=== PATIENT | female | born 1995 | race Two or more races ===

== ENCOUNTER 2019-01-18 14:08 | Emergency (ER) | payer OTHER ==
[~2019-01-18] VITALS: Ht 157.5 cm; Wt 46.0 kg
[2019-01-18] MEDS ORDERED: SODIUM CHLORIDE 0.9% 1,000 ML IV ONE (15:02)
[2019-01-18] MEDS ORDERED: methylPREDNISolone SOD SUCC 125 MG/2 ML VL IV ONE (15:15)
[2019-01-18 15:47] LABS: Basophils # (auto) 0 uL; Basophils % (auto) 0.6 % (0.0-2.0); Eosinophils # (auto) 0 uL; Eosinophils % (auto) 0.5 % (0.0-7.0); Hematocrit 44.9 % (36.0-46.0); Hemoglobin 15.6 g/dL (12.2-16.2); Lymphocytes # (auto) 1.7 uL; Lymphocytes % (auto) 31.4 % (10.0-50.0); Mean Corpuscular Hgb Conc. 34.6 g/dL (32.0-36.0); Mean Corpuscular Volume 92.3 fL (80.0-100.0); Monocytes # (auto) 0.4 uL; Monocytes % (auto) 7.5 % (0.0-12.0); Neutrophils # (auto) 3.3 uL; Nucleated Red Blood Cells % 0.1 %; Platelet Count (auto) 213 10^3/uL (140-450); Red Blood Cells 4.87 10^6/uL (4.0-5.20); White Blood Cell 5.4 10^3/uL (4.4-10.8)
[2019-01-18 16:11] LABS: Albumin 4.5 g/dL (3.4-5.0); BUN/Creatinine Ratio 15.9; Calcium 9.7 mg/dL (8.5-10.1); Potassium 4.1 mmol/L (3.5-5.1)
[2019-01-18 16:21] LABS: Bilirubin, Total 0.9 mg/dL (0.2-1.0); Total Protein 8.4 g/dL (6.4-8.2)
[2019-01-18 18:28] VITALS: BP 106/60
[2019-01-18 18:51] LABS: Urine Bacteria NONE SEEN /hpf (None Seen); Urine Blood 2+ /uL (Negative); Urine Mucus FEW (None Seen); Urine Specific Gravity 1.024 (1.001-1.035); Urine WBC 1 /hpf (0 - 5)
[2019-01-18] MEDS ORDERED: KETOROLAC TROMETH 15 mg/ml 1ML VL IV ONE (19:30)
== END 2019-01-18 20:07 | disposition home or self-care (01) ==
LOC: ER 14:12
DX: M25.50 Pain in unspecified joint (principal); R53.1 Weakness; R11.2 Nausea with vomiting, unspecified; R19.7 Diarrhea, unspecified
CPT/HCPCS: 36415; 80053; 81001; 81025; 84443; 85025; 94761; 96361; 96374; 96375; 99283; J1885; J2930; J7030

== ENCOUNTER 2019-07-21 00:52 | Emergency (ER) | payer OTHER ==
[~2019-07-21] VITALS: Ht 157.5 cm; Wt 45.4 kg
[2019-07-21 01:21] VITALS: BP 95/58
[2019-07-21 01:39] LABS: Urine Bacteria FEW /hpf (None Seen); Urine Blood Negative /uL (Negative); Urine Mucus FEW (None Seen); Urine Specific Gravity 1.024 (1.001-1.035); Urine WBC 8 /hpf (0 - 5)
[2019-07-21 02:21] LABS: Basophils # (auto) 0 uL; Basophils % (auto) 0.6 % (0.0-2.0); Eosinophils # (auto) 0 uL; Eosinophils % (auto) 0.3 % (0.0-7.0); Hematocrit 38.9 % (36.0-46.0); Hemoglobin 13.4 g/dL (12.2-16.2); Lymphocytes # (auto) 1.4 uL; Lymphocytes % (auto) 17.7 % (10.0-50.0); Mean Corpuscular Hemoglobin 31.5 pg (28.0-32.0); Mean Corpuscular Hgb Conc. 34.5 g/dL (32.0-36.0); Mean Corpuscular Volume 91.5 fL (80.0-100.0); Monocytes # (auto) 0.5 uL; Monocytes % (auto) 6.1 % (0.0-12.0); Neutrophils % (auto) 75.3 % (37.0-80.0); Platelet Count (auto) 191 10^3/uL (140-450); Red Blood Cells 4.25 10^6/uL (4.0-5.20); Red Cell Distribution Width 13.1 % (11.8-14.3); White Blood Cell 7.9 10^3/uL (4.4-10.8)
[2019-07-21 02:36] LABS: Albumin 3.8 g/dL (3.4-5.0); BUN/Creatinine Ratio 25.4; Calcium 8.5 mg/dL (8.5-10.1); Potassium 3.9 mmol/L (3.5-5.1)
[2019-07-21 02:38] LABS: Bilirubin, Total 0.8 mg/dL (0.2-1.0); Total Protein 7.5 g/dL (6.4-8.2)
== END 2019-07-21 04:55 | disposition left against medical advice (07) ==
LOC: ER 00:52
DX: R10.9 Unspecified abdominal pain (principal); Z53.21 Procedure and treatment not carried out due to patient leaving prior to being seen by health care provider
CPT/HCPCS: 36415; 74176; 80053; 81001; 83690; 85025

== ENCOUNTER 2020-12-29 19:12 | Emergency (ER) | payer OTHER ==
[~2020-12-29] VITALS: Ht 167.6 cm; Wt 2.4 kg
[2020-12-29] MEDS ORDERED: KETOROLAC TROMETH 30 MG/ML 1ML VIAL IV ONE (22:30)
[2020-12-29 23:49] LABS: Basophils # (auto) 0 10 ^3/uL (0-0.2); Basophils % (auto) 0.4 % (0.0-2.0); Eosinophils # (auto) 0 10 ^3/uL (0-0.8); Eosinophils % (auto) 0.2 % (0.0-7.0); Hematocrit 37.2 % (36.0-46.0); Hemoglobin 12.9 g/dL (12.2-16.2); Lymphocytes # (auto) 1.4 10 ^3/uL (0.4-5.4); Lymphocytes % (auto) 15.5 % (10.0-50.0); Mean Corpuscular Hgb Conc. 34.7 g/dL (32.0-36.0); Mean Corpuscular Volume 86.4 fL (80.0-100.0); Monocytes # (auto) 0.5 10 ^3/uL (0-1.3); Monocytes % (auto) 5.8 % (0.0-12.0); Neutrophils % (auto) 78.1 % (37.0-80.0); Red Blood Cells 4.31 10^6/uL (4.0-5.20); Red Cell Distribution Width 14.5 % (11.8-14.3)
[2020-12-30 00:14] LABS: Albumin 3.8 g/dL (3.4-5.0); Calcium 9.1 mg/dL (8.5-10.1); Magnesium 1.8 mg/dL (1.6-2.6); Potassium 3.3 mmol/L (3.5-5.1)
[2020-12-30 00:20] LABS: BUN/Creatinine Ratio 23.4; Bilirubin, Total 0.9 mg/dL (0.2-1.0); Total Protein 7.4 g/dL (6.4-8.2)
[2020-12-30] MEDS ORDERED: fentaNYL CITRATE 100 MCG/2 ML VL IV ONE ×2 (02:15→06:30)
[2020-12-30] MEDS ORDERED: fentaNYL CITRATE 5 ML ONE (06:47)
[2020-12-30] MEDS ORDERED: MORPHINE SULFATE 4 MG/ML SYR/VIAL IV ONE (11:30)
[2020-12-30] MEDS ORDERED: ONDANSETRON HCL 4 MG/2 ML VIAL IV ONE (11:30)
[2020-12-30] MEDS ORDERED: SODIUM CHLORIDE 0.9% 1,000 ML IV ONE (11:30)
[2020-12-30 12:23] VITALS: BP 105/66
== END 2020-12-30 12:39 | disposition home or self-care (01) ==
LOC: EDBD 19:12 → ER 19:12
DX: N83.201 Unspecified ovarian cyst, right side (principal); N83.202 Unspecified ovarian cyst, left side; R11.2 Nausea with vomiting, unspecified; Z20.822 Contact with and (suspected) exposure to COVID-19
CPT/HCPCS: 36415; 74176; 76830; 76856; 80053; 82150; 83690; 83735; 85025; 87426; 96361; 96374; 96375; 96376; 99285; J1885; J2270; J2405; J3010; J7030

== ENCOUNTER 2021-08-10 03:23 | Emergency (ER) | payer MEDICAID, OTHER ==
[~2021-08-10] VITALS: Ht 167.6 cm; Wt 54.9 kg
[2021-08-10 04:23] LABS: Basophils # (auto) 0 10 ^3/uL (0-0.2); Basophils % (auto) 0.5 % (0.0-2.0); Eosinophils # (auto) 0 10 ^3/uL (0-0.8); Eosinophils % (auto) 0.3 % (0.0-7.0); Hematocrit 37.8 % (36.0-46.0); Hemoglobin 12.9 g/dL (12.2-16.2); Lymphocytes # (auto) 2.5 10 ^3/uL (0.4-5.4); Lymphocytes % (auto) 30.1 % (10.0-50.0); Mean Corpuscular Hemoglobin 29.9 pg (28.0-32.0); Mean Corpuscular Hgb Conc. 34.1 g/dL (32.0-36.0); Mean Corpuscular Volume 87.6 fL (80.0-100.0); Monocytes # (auto) 0.5 10 ^3/uL (0-1.3); Monocytes % (auto) 5.4 % (0.0-12.0); Neutrophils # (auto) 5.4 10 ^3/uL (1.6-8.6); Neutrophils % (auto) 63.7 % (37.0-80.0); Nucleated Red Blood Cells % 0.1 %; Red Blood Cells 4.32 10^6/uL (4.0-5.20); White Blood Cell 8.4 10^3/uL (4.4-10.8)
[2021-08-10 04:44] LABS: Calcium 8.8 mg/dL (8.5-10.1); Potassium 3.2 mmol/L (3.5-5.1)
[2021-08-10 04:47] LABS: Albumin 3.7 g/dL (3.4-5.0); BUN/Creatinine Ratio 23.9
[2021-08-10 04:50] LABS: Bilirubin, Total 0.4 mg/dL (0.2-1.0); Total Protein 7.4 g/dL (6.4-8.2)
[2021-08-10] MEDS ORDERED: POTASSIUM EFFERVESENT TAB 25 MEQ PO ONE (07:30)
[2021-08-10] MEDS ORDERED: MORPHINE SULFATE 4 MG/ML SYR/VIAL IV ONE (07:45)
[2021-08-10] MEDS ORDERED: ONDANSETRON HCL 4 MG/2 ML VIAL IV ONE (07:45)
[2021-08-10 08:57] VITALS: BP 91/55
[2021-08-10] MEDS ORDERED: CEPH-509 PO (09:09)
[2021-08-10] MEDS ORDERED: ACET-1156 PO (09:10)
[2021-08-10] MEDS ORDERED: HYDROcodone-ACET 10/325MG TAB PO ONE (09:30)
[2021-08-10 09:58] LABS: Urine Amorphous Crystal FEW /hpf (None Seen); Urine Bacteria NONE SEEN /hpf (None Seen); Urine Blood Negative /uL (Negative); Urine Mucus FEW (None Seen); Urine Specific Gravity 1.013 (1.001-1.035); Urine WBC 7 /hpf (0 - 5)
== END 2021-08-10 10:17 | disposition home or self-care (01) ==
LOC: ER 03:23 → EDBD 03:23 → EDUNIT# 03:23 → ER 10:17
DX: N83.201 Unspecified ovarian cyst, right side (principal); E87.6 Hypokalemia; Z20.822 Contact with and (suspected) exposure to COVID-19
CPT/HCPCS: 36415; 71045; 74176; 76830; 76856; 80053; 81001; 83690; 85025; 87426; 96374; 96375; 99285; J2270; J2405

== ENCOUNTER 2023-04-04 02:36 | Inpatient (IN) | payer MEDICAID ==
[~2023-04-04] VITALS: Ht 157.5 cm; Wt 55.0 kg
[~2023-04-04 02:36] MED LIST: ACET-1881 PO; CEPH-509 PO
[2023-04-04 04:30] LABS: Basophils # (auto) 0 10 ^3/uL (0-0.2); Basophils % (auto) 0.4 % (0.0-2.0); Eosinophils # (auto) 0.1 10 ^3/uL (0-0.8); Eosinophils % (auto) 0.6 % (0.0-7.0); Hematocrit 37.2 % (36.0-46.0); Hemoglobin 12.5 g/dL (12.2-16.2); Lymphocytes # (auto) 2.1 10 ^3/uL (0.4-5.4); Lymphocytes % (auto) 22.1 % (10.0-50.0); Mean Corpuscular Hemoglobin 29.4 pg (28.0-32.0); Mean Corpuscular Hgb Conc. 33.7 g/dL (32.0-36.0); Mean Corpuscular Volume 87.2 fL (80.0-100.0); Monocytes # (auto) 0.6 10 ^3/uL (0-1.3); Monocytes % (auto) 6.5 % (0.0-12.0); Neutrophils # (auto) 6.8 10 ^3/uL (1.6-8.6); Neutrophils % (auto) 70.4 % (37.0-80.0); Nucleated Red Blood Cells % 0.1 %; Red Blood Cells 4.27 10^6/uL (4.0-5.20); Red Cell Distribution Width 15.1 % (11.8-14.3); White Blood Cell 9.6 10^3/uL (4.4-10.8)
[2023-04-04 04:43] LABS: Albumin 4.3 g/dL (3.2-4.8); Alkaline Phosphatase 79 U/L (46-116); Anion Gap 5 (5-15); Aspartate Aminotransferase 8 U/L (13-40); BUN/Creatinine Ratio 9.4 (10.0-20.0); Blood Urea Nitrogen 6 mg/dL (9-23); Calcium 9.1 mg/dL (8.7-10.4); Carbon Dioxide 27 mmol/L (20-30); Chloride 107 mmol/L (98-107); Glucose 99 mg/dL (74-106); Lipase 56 U/L (12-53); Potassium 3.8 mmol/L (3.5-5.1); Sodium 139 mmol/L (136-145)
[2023-04-04 04:43] LABS: Urine Bacteria FEW /hpf (None Seen); Urine Blood Negative /uL (Negative); Urine Clarity Clear (Clear); Urine Color Yellow (Yellow); Urine Mucus FEW (None Seen); Urine Protein, UAD Negative (Negative); Urine Specific Gravity 1.022 (1.001-1.035); Urine Urobilinogen Normal (Negative); Urine WBC <1 /hpf (0 - 5)
[2023-04-04 04:44] LABS: Bilirubin, Total 0.4 mg/dL (0.2-1.0); Total Protein 7.1 g/dL (5.7-8.2)
[2023-04-04 04:50] LABS: Alanine Aminotransferase < 9 U/L (7-40)
[2023-04-04] MEDS ORDERED: HYDROcodone-ACET 10/325MG TAB PO ONE (08:15)
[2023-04-04 11:34] VITALS: PULSE 70; RESP 16; O2SAT 98
[2023-04-04] MEDS ORDERED: HYDROmorphone HCL 2 MG/ML VL/or syr IV ONE (12:15)
[2023-04-04] MEDS ORDERED: PIPERACILLIN-TAZOB 3.375GM 100 ML IV ONE (13:30)
[2023-04-04] MEDS: ONDANSETRON HCL 4 MG/2 ML VIAL IV PRN ×2 (13:46→21:52)
[2023-04-04] MEDS: SODIUM CHLORIDE 0.9% 1,000 ML IV SCH ×2 (13:47→21:50)
[2023-04-04 14:22] LABS: INR 1.03 (0.9-1.15); Prothrombin Time 10.8 sec (9.3-11.8)
[2023-04-04] MEDS: HYDROmorphone HCL 2 MG/ML VL/or syr IV PRN ×2 (17:40→21:51)
[2023-04-04] MEDS ORDERED: PIPERACILLIN-TAZOB 3.375GM 100 ML IV SCH (18:00)
[2023-04-04 19:30] VITALS: PULSE 79; RESP 16; O2SAT 97
[2023-04-04] MEDS: PIPERACILLIN-TAZOB 3.375GM 100 ML IV SCH (20:26)
[2023-04-04 22:18] LABS: Hematocrit 36.4 % (36.0-46.0)
[2023-04-05] VITALS (8 sets, daily range): BP systolic 100–117; BP diastolic 62–74; PULSE 69–97; RESP 17–20; TEMP 97.9–98.8; O2SAT 95–98
[2023-04-05] MEDS: PIPERACILLIN-TAZOB 3.375GM 100 ML IV SCH ×4 (02:44→21:29)
[2023-04-05] MEDS: ONDANSETRON HCL 4 MG/2 ML VIAL IV PRN ×5 (02:44→21:30)
[2023-04-05] MEDS: HYDROmorphone HCL 2 MG/ML VL/or syr IV PRN ×5 (02:46→21:31)
[2023-04-05] MEDS ORDERED: ALBUAER3 IN (03:13)
[2023-04-05] MEDS: SODIUM CHLORIDE 0.9% 1,000 ML IV SCH ×3 (05:55→21:32)
[2023-04-05 06:02] LABS: Basophils # (auto) 0 10 ^3/uL (0-0.2); Basophils % (auto) 0.4 % (0.0-2.0); Eosinophils # (auto) 0 10 ^3/uL (0-0.8); Eosinophils % (auto) 0.7 % (0.0-7.0); Hematocrit 35.2 % (36.0-46.0); Hemoglobin 11.9 g/dL (12.2-16.2); Lymphocytes % (auto) 22.5 % (10.0-50.0); Mean Corpuscular Hemoglobin 29.9 pg (28.0-32.0); Mean Corpuscular Hgb Conc. 33.8 g/dL (32.0-36.0); Mean Corpuscular Volume 88.5 fL (80.0-100.0); Monocytes # (auto) 0.4 10 ^3/uL (0-1.3); Monocytes % (auto) 8.1 % (0.0-12.0); Neutrophils # (auto) 3.1 10 ^3/uL (1.6-8.6); Neutrophils % (auto) 68.3 % (37.0-80.0); Red Blood Cells 3.98 10^6/uL (4.0-5.20); White Blood Cell 4.5 10^3/uL (4.4-10.8)
[2023-04-05 06:20] LABS: Albumin 3.9 g/dL (3.2-4.8); Alkaline Phosphatase 67 U/L (46-116); Anion Gap 6 (5-15); Aspartate Aminotransferase 11 U/L (13-40); Calcium 8.5 mg/dL (8.7-10.4); Carbon Dioxide 27 mmol/L (20-30); Chloride 104 mmol/L (98-107); Glucose 87 mg/dL (74-106); Potassium 3.3 mmol/L (3.5-5.1); Sodium 137 mmol/L (136-145)
[2023-04-05 06:21] LABS: Bilirubin, Total 1.6 mg/dL (0.2-1.0); Total Protein 6.4 g/dL (5.7-8.2)
[2023-04-05 06:22] LABS: Alanine Aminotransferase < 9 U/L (7-40); BUN/Creatinine Ratio 6.8 (10.0-20.0); Blood Urea Nitrogen < 5 mg/dL (9-23)
[2023-04-05 10:58] LABS: Hematocrit 36.2 % (36.0-46.0)
[2023-04-05 13:39] LABS: Urine Bacteria NONE SEEN /hpf (None Seen); Urine Blood 3+ /uL (Negative); Urine Clarity Clear (Clear); Urine Color Colorless (Yellow); Urine Protein, UAD Negative (Negative); Urine Urobilinogen Normal (Negative); Urine WBC 5 /hpf (0 - 5); Urine pH 6.5 (5.0-8.0)
[2023-04-05 22:57] LABS: Hemoglobin 11.9 g/dL (12.2-16.2)
[2023-04-06] VITALS (7 sets, daily range): BP systolic 102–122; BP diastolic 56–74; PULSE 76–96; RESP 16–20; TEMP 97.8–99.5; O2SAT 96–98
[2023-04-06] MEDS: PIPERACILLIN-TAZOB 3.375GM 100 ML IV SCH ×4 (02:00→20:34)
[2023-04-06] MEDS: ONDANSETRON HCL 4 MG/2 ML VIAL IV PRN ×4 (04:23→17:15)
[2023-04-06] MEDS: HYDROmorphone HCL 2 MG/ML VL/or syr IV PRN ×5 (04:28→22:24)
[2023-04-06 06:34] LABS: Basophils # (auto) 0 10 ^3/uL (0-0.2); Basophils % (auto) 0.3 % (0.0-2.0); Eosinophils # (auto) 0 10 ^3/uL (0-0.8); Eosinophils % (auto) 0.6 % (0.0-7.0); Hematocrit 34.9 % (36.0-46.0); Hemoglobin 11.7 g/dL (12.2-16.2); Lymphocytes % (auto) 21.8 % (10.0-50.0); Mean Corpuscular Hemoglobin 29.6 pg (28.0-32.0); Mean Corpuscular Hgb Conc. 33.4 g/dL (32.0-36.0); Mean Corpuscular Volume 88.5 fL (80.0-100.0); Monocytes # (auto) 0.4 10 ^3/uL (0-1.3); Monocytes % (auto) 8.7 % (0.0-12.0); Neutrophils % (auto) 68.6 % (37.0-80.0); Nucleated Red Blood Cells % 0.1 %; Red Blood Cells 3.94 10^6/uL (4.0-5.20); Red Cell Distribution Width 14.7 % (11.8-14.3); White Blood Cell 4.4 10^3/uL (4.4-10.8)
[2023-04-06 06:42] LABS: Chloride 105 mmol/L (98-107); Potassium 3.1 mmol/L (3.5-5.1); Sodium 137 mmol/L (136-145)
[2023-04-06 06:43] LABS: Calcium 8.3 mg/dL (8.5-10.1)
[2023-04-06 06:48] LABS: BUN/Creatinine Ratio 7.8 (10.0-20.0); Blood Urea Nitrogen < 5 mg/dL (9-23); Glucose 61 mg/dL (74-106)
[2023-04-06 06:52] LABS: INR 1.04 (0.9-1.15); Partial Thromboplastin Time 28.3 SEC (24.5-34.5); Prothrombin Time 10.9 sec (9.3-11.8)
[2023-04-06 06:55] LABS: Anion Gap 12 (5-15); Carbon Dioxide 20 mmol/L (20-30)
[2023-04-06] MEDS: SODIUM CHLORIDE 0.9% 1,000 ML IV SCH ×2 (07:18→15:15)
[2023-04-06] MEDS: POTASSIUM CHL 20MEQ/100ML 100 ML IV SCH ×2 (07:45→09:45)
[2023-04-06] MEDS ORDERED: POTASSIUM CHL 20 Meq TABLET PO ONE (08:15)
[2023-04-06] MEDS ORDERED: GADOTERATE MEG 10 MMOL/20ml INJ (0.5MMOL/ml) IV ONE (10:20)
[2023-04-06 18:32] LABS: Hematocrit 34.1 % (36.0-46.0); Hemoglobin 11.6 g/dL (12.2-16.2)
[2023-04-07] VITALS (8 sets, daily range): BP systolic 114–127; BP diastolic 64–87; PULSE 61–96; RESP 16–22; TEMP 36.6; O2SAT 96–99
[2023-04-07] MEDS: PIPERACILLIN-TAZOB 3.375GM 100 ML IV SCH (02:15)
[2023-04-07] MEDS: SODIUM CHLORIDE 0.9% 1,000 ML IV SCH ×2 (02:15→07:55)
[2023-04-07] MEDS: HYDROmorphone HCL 2 MG/ML VL/or syr IV PRN ×2 (05:36→20:17)
[2023-04-07 06:47] LABS: Basophils # (auto) 0 10 ^3/uL (0-0.2); Basophils % (auto) 0.5 % (0.0-2.0); Eosinophils # (auto) 0.1 10 ^3/uL (0-0.8); Eosinophils % (auto) 1.4 % (0.0-7.0); Hematocrit 33.3 % (36.0-46.0); Hemoglobin 11.5 g/dL (12.2-16.2); Lymphocytes # (auto) 1.7 10 ^3/uL (0.4-5.4); Lymphocytes % (auto) 43.5 % (10.0-50.0); Mean Corpuscular Hemoglobin 29.7 pg (28.0-32.0); Mean Corpuscular Hgb Conc. 34.4 g/dL (32.0-36.0); Mean Corpuscular Volume 86.3 fL (80.0-100.0); Monocytes # (auto) 0.4 10 ^3/uL (0-1.3); Monocytes % (auto) 10.3 % (0.0-12.0); Neutrophils # (auto) 1.7 10 ^3/uL (1.6-8.6); Neutrophils % (auto) 44.3 % (37.0-80.0); Nucleated Red Blood Cells % 0.1 %; Red Blood Cells 3.86 10^6/uL (4.0-5.20); Red Cell Distribution Width 14.9 % (11.8-14.3); White Blood Cell 3.8 10^3/uL (4.4-10.8)
[2023-04-07 07:07] LABS: Anion Gap 6 (5-15); Carbon Dioxide 24 mmol/L (20-30); Chloride 108 mmol/L (98-107); Potassium 3.6 mmol/L (3.5-5.1); Sodium 138 mmol/L (136-145)
[2023-04-07 07:08] LABS: Calcium 8.7 mg/dL (8.5-10.1)
[2023-04-07 07:13] LABS: BUN/Creatinine Ratio 9.1 (10.0-20.0); Blood Urea Nitrogen 6 mg/dL (9-23); Glucose 105 mg/dL (74-106)
[2023-04-07 07:33] LABS: Magnesium 1.9 mg/dL (1.6-2.6)
[2023-04-07] MEDS ORDERED: ceFAZolin 2 GM/D5W100ml 100 ML IV ONE (08:15)
[2023-04-07] MEDS: ONDANSETRON HCL 4 MG/2 ML VIAL IV PRN ×2 (08:35→15:42)
[2023-04-07] MEDS ORDERED: BUPIVACAINE HCL 50 ML ONE (10:09)
[2023-04-07] MEDS ORDERED: fentaNYL CITRATE 100 MCG/2 ML VL ONE ×3 (10:23→13:15)
[2023-04-07] MEDS ORDERED: LIDOCAINE 1% INJ PF 5ML AMP ONE (10:23)
[2023-04-07] MEDS ORDERED: ONDANSETRON HCL 4 MG/2 ML VIAL ONE (10:23)
[2023-04-07] MEDS ORDERED: PROPOFOL 10 MG/ML 20 ML IV ONE (10:23)
[2023-04-07] MEDS ORDERED: MIDAZOLAM HCL 2MG/2ML 2ml VIAL (1mg/ml) ONE (10:24)
[2023-04-07] MEDS ORDERED: ROCURONIUM 10MG/ML 10ML VIAL IV ONE (10:42)
[2023-04-07] MEDS ORDERED: ONDANSETRON HCL 4 MG/2 ML VIAL IV PRN (12:30)
[2023-04-07] MEDS ORDERED: HYDROmorphone HCL 2 MG/ML VL/or syr IV PRN ×3 (12:30→14:30)
[2023-04-07] MEDS ORDERED: NEOSTIGMINE 1 MG/ML INJ (10mg/10ML VIAL) ONE (13:08)
[2023-04-07] MEDS ORDERED: GLYCOPYRROLATE 0.2 MG/ML 1ML VIAL ONE (13:08)
[2023-04-07] MEDS ORDERED: HYDROmorphone HCL 2 MG/ML VL/or syr IV ONE ×6 (13:28→16:15)
[2023-04-07] MEDS ORDERED: ACETAMINOPHEN 500 MG TAB PO PRN (14:30)
[2023-04-07] MEDS ORDERED: HYDROcodone-ACET 5/325MG TAB PO PRN (14:30)
[2023-04-07 17:07] LABS: Basophils # (auto) 0 10 ^3/uL (0-0.2); Basophils % (auto) 0.1 % (0.0-2.0); Eosinophils # (auto) 0 10 ^3/uL (0-0.8); Hematocrit 34.9 % (36.0-46.0); Hemoglobin 11.5 g/dL (12.2-16.2); Lymphocytes # (auto) 0.6 10 ^3/uL (0.4-5.4); Lymphocytes % (auto) 6.5 % (10.0-50.0); Mean Corpuscular Hemoglobin 29.1 pg (28.0-32.0); Mean Corpuscular Hgb Conc. 33.1 g/dL (32.0-36.0); Mean Corpuscular Volume 87.9 fL (80.0-100.0); Monocytes # (auto) 0.6 10 ^3/uL (0-1.3); Monocytes % (auto) 6.4 % (0.0-12.0); Neutrophils # (auto) 8.5 10 ^3/uL (1.6-8.6); Red Blood Cells 3.97 10^6/uL (4.0-5.20); Red Cell Distribution Width 14.9 % (11.8-14.3); White Blood Cell 9.8 10^3/uL (4.4-10.8)
[2023-04-07 17:26] LABS: Chloride 107 mmol/L (98-107); Potassium 3.8 mmol/L (3.5-5.1); Sodium 139 mmol/L (136-145)
[2023-04-07 17:27] LABS: Anion Gap 6 (5-15); Calcium 8.2 mg/dL (8.7-10.4); Carbon Dioxide 26 mmol/L (20-30)
[2023-04-07 17:32] LABS: Glucose 105 mg/dL (74-106)
[2023-04-07 17:33] LABS: BUN/Creatinine Ratio 8.9 (10.0-20.0); Blood Urea Nitrogen < 5 mg/dL (9-23)
[2023-04-08] VITALS (7 sets, daily range): BP systolic 109–127; BP diastolic 71–89; PULSE 87–106; RESP 14–17; TEMP 97.9–98.8; O2SAT 90–98
[2023-04-08] MEDS: HYDROmorphone HCL 2 MG/ML VL/or syr IV PRN ×8 (00:43→22:05)
[2023-04-08] MEDS: HYDROcodone-ACET 10/325MG TAB PO PRN ×4 (03:14→23:02)
[2023-04-08 05:24] LABS: Basophils # (auto) 0 10 ^3/uL (0-0.2); Basophils % (auto) 0.2 % (0.0-2.0); Eosinophils # (auto) 0 10 ^3/uL (0-0.8); Eosinophils % (auto) 0.3 % (0.0-7.0); Hematocrit 32.4 % (36.0-46.0); Hemoglobin 10.9 g/dL (12.2-16.2); Lymphocytes # (auto) 1.5 10 ^3/uL (0.4-5.4); Lymphocytes % (auto) 27.3 % (10.0-50.0); Mean Corpuscular Hemoglobin 29.7 pg (28.0-32.0); Mean Corpuscular Hgb Conc. 33.6 g/dL (32.0-36.0); Mean Corpuscular Volume 88.5 fL (80.0-100.0); Monocytes # (auto) 0.5 10 ^3/uL (0-1.3); Monocytes % (auto) 8.8 % (0.0-12.0); Neutrophils # (auto) 3.5 10 ^3/uL (1.6-8.6); Neutrophils % (auto) 63.4 % (37.0-80.0); Nucleated Red Blood Cells % 0.1 %; Red Blood Cells 3.67 10^6/uL (4.0-5.20); Red Cell Distribution Width 15.1 % (11.8-14.3); White Blood Cell 5.5 10^3/uL (4.4-10.8)
[2023-04-08 05:36] LABS: Calcium 8.2 mg/dL (8.7-10.4); Chloride 105 mmol/L (98-107); Potassium 3.5 mmol/L (3.5-5.1); Sodium 137 mmol/L (136-145)
[2023-04-08 05:37] LABS: Anion Gap 6 (5-15); Carbon Dioxide 26 mmol/L (20-30)
[2023-04-08 05:42] LABS: Glucose 97 mg/dL (74-106)
[2023-04-08 05:49] LABS: BUN/Creatinine Ratio 8.6 (10.0-20.0); Blood Urea Nitrogen < 5 mg/dL (9-23)
[2023-04-08] MEDS: FLUCONAZOLE 100 MG TAB PO SCH (08:57)
[2023-04-08] MEDS: ONDANSETRON HCL 4 MG/2 ML VIAL IV PRN ×4 (08:57→22:04)
[2023-04-08] MEDS: DOCUSATE SOD 100 MG CAP PO PRN (09:09)
[2023-04-09] VITALS (7 sets, daily range): BP systolic 110–122; BP diastolic 41–81; PULSE 77–122; RESP 16–20; TEMP 97.9–99.8; O2SAT 94–100
[2023-04-09] MEDS: ONDANSETRON HCL 4 MG/2 ML VIAL IV PRN ×4 (00:56→15:44)
[2023-04-09] MEDS: HYDROmorphone HCL 2 MG/ML VL/or syr IV PRN ×7 (00:56→23:56)
[2023-04-09 05:46] LABS: Basophils # (auto) 0 10 ^3/uL (0-0.2); Basophils % (auto) 0.4 % (0.0-2.0); Eosinophils # (auto) 0.1 10 ^3/uL (0-0.8); Hematocrit 32.7 % (36.0-46.0); Lymphocytes # (auto) 1.4 10 ^3/uL (0.4-5.4); Lymphocytes % (auto) 25.9 % (10.0-50.0); Mean Corpuscular Hemoglobin 29.7 pg (28.0-32.0); Mean Corpuscular Hgb Conc. 33.7 g/dL (32.0-36.0); Mean Corpuscular Volume 87.9 fL (80.0-100.0); Monocytes # (auto) 0.5 10 ^3/uL (0-1.3); Monocytes % (auto) 9.1 % (0.0-12.0); Neutrophils # (auto) 3.4 10 ^3/uL (1.6-8.6); Neutrophils % (auto) 62.6 % (37.0-80.0); Red Blood Cells 3.72 10^6/uL (4.0-5.20); Red Cell Distribution Width 14.7 % (11.8-14.3); White Blood Cell 5.4 10^3/uL (4.4-10.8)
[2023-04-09 05:52] LABS: Anion Gap 9 (5-15); Carbon Dioxide 27 mmol/L (20-30); Chloride 101 mmol/L (98-107); Potassium 3.2 mmol/L (3.5-5.1); Sodium 137 mmol/L (136-145)
[2023-04-09 05:53] LABS: Calcium 8.8 mg/dL (8.5-10.1)
[2023-04-09 05:58] LABS: Glucose 85 mg/dL (74-106)
[2023-04-09 06:18] LABS: BUN/Creatinine Ratio 8.8 (10.0-20.0); Blood Urea Nitrogen < 5 mg/dL (9-23)
[2023-04-09] MEDS: DOCUSATE SOD 100 MG CAP PO PRN (06:54)
[2023-04-09] MEDS: HYDROcodone-ACET 10/325MG TAB PO PRN ×3 (06:55→20:40)
[2023-04-09] MEDS ORDERED: POTASSIUM EFFERVESENT TAB 25 MEQ PO ONE (08:30)
[2023-04-09] MEDS: FLUCONAZOLE 100 MG TAB PO SCH (09:53)
[2023-04-09] MEDS ORDERED: HYDROmorphone HCL 2 MG/ML VL/or syr IV PRN ×2 (11:30→15:00)
[2023-04-10 05:00] VITALS: BP 138/77; PULSE 93; RESP 18; TEMP 98.5; O2SAT 93
[2023-04-10] MEDS: HYDROmorphone HCL 2 MG/ML VL/or syr IV PRN ×4 (05:04→11:21)
[2023-04-10] MEDS: HYDROcodone-ACET 10/325MG TAB PO PRN ×2 (06:24→13:12)
[2023-04-10 06:28] LABS: Chloride 101 mmol/L (98-107); Potassium 3.5 mmol/L (3.5-5.1); Sodium 136 mmol/L (136-145)
[2023-04-10 06:29] LABS: Anion Gap 7 (5-15); Carbon Dioxide 28 mmol/L (20-30)
[2023-04-10 06:30] LABS: Calcium 9.3 mg/dL (8.7-10.4)
[2023-04-10 06:35] LABS: Glucose 95 mg/dL (74-106)
[2023-04-10 06:37] LABS: BUN/Creatinine Ratio 8.3 (10.0-20.0); Blood Urea Nitrogen < 5 mg/dL (9-23)
[2023-04-10 07:29] LABS: Basophils # (auto) 0 10 ^3/uL (0-0.2); Basophils % (auto) 0.4 % (0.0-2.0); Eosinophils # (auto) 0.1 10 ^3/uL (0-0.8); Eosinophils % (auto) 2.5 % (0.0-7.0); Hematocrit 35.6 % (36.0-46.0); Hemoglobin 11.9 g/dL (12.2-16.2); Lymphocytes # (auto) 1.4 10 ^3/uL (0.4-5.4); Lymphocytes % (auto) 27.6 % (10.0-50.0); Mean Corpuscular Hemoglobin 29.5 pg (28.0-32.0); Mean Corpuscular Hgb Conc. 33.3 g/dL (32.0-36.0); Mean Corpuscular Volume 88.7 fL (80.0-100.0); Monocytes # (auto) 0.5 10 ^3/uL (0-1.3); Neutrophils # (auto) 3.1 10 ^3/uL (1.6-8.6); Neutrophils % (auto) 60.5 % (37.0-80.0); Nucleated Red Blood Cells % 0.3 %; Red Blood Cells 4.02 10^6/uL (4.0-5.20); Red Cell Distribution Width 14.8 % (11.8-14.3); White Blood Cell 5.1 10^3/uL (4.4-10.8)
[2023-04-10] MEDS ORDERED: DOCU-265 PO (07:46)
[2023-04-10] MEDS ORDERED: HYDR-4798 PO (07:46)
[2023-04-10 08:00] VITALS: PULSE 91; RESP 16; O2SAT 95
[2023-04-10 09:00] VITALS: BP 118/72; PULSE 91; RESP 16; TEMP 98.2; O2SAT 95
[2023-04-10] MEDS: FLUCONAZOLE 100 MG TAB PO SCH (09:09)
[2023-04-10] MEDS ORDERED: CEPH500C PO (09:21)
[2023-04-10 10:54] VITALS: BP 118/72; PULSE 91; RESP 16; TEMP 98.2; O2SAT 95
[2023-04-10 13:00] VITALS: BP 121/80; PULSE 56; RESP 16; TEMP 98.1; O2SAT 97
== END 2023-04-10 14:24 | disposition home or self-care (01) | DRG 513 ==
LOC: ER 02:36 → OVERFLOW 13:17 → TELE 13:34 → TELE-CENTR 22:14 → CENTRAL 04-10 07:49
PROVIDERS: ADMIT Internal Medicine Geriatric Medicine; ATTEND Student in an Organized Health Care Education/Training Program
PROC: 0UB14ZZ Excision of Left Ovary, Percutaneous Endoscopic Approach (ICD-10-PCS; 2023-04-07)
PROC: 0UB00ZZ Excision of Right Ovary, Open Approach (ICD-10-PCS; 2023-04-07)
PROC: 0UB64ZZ Excision of Left Fallopian Tube, Percutaneous Endoscopic Approach (ICD-10-PCS; principal; 2023-04-07 11:06)
DX: N80.103 Endometriosis of bilateral ovaries, unspecified depth (principal); B49 Unspecified mycosis; I48.20 Chronic atrial fibrillation, unspecified; F32.A Depression, unspecified; F41.9 Anxiety disorder, unspecified; N83.201 Unspecified ovarian cyst, right side; N83.6 Hematosalpinx; M19.90 Unspecified osteoarthritis, unspecified site; N39.0 Urinary tract infection, site not specified; Z82.49 Family history of ischemic heart disease and other diseases of the circulatory system
CPT/HCPCS: 36415; 72195; 74176; 76856; 80048; 80053; 81001; 81025; 83690; 83735; 84132; 84443; 85014; 85018; 85025; 85610; 85730; 86850; 86900; 86901; 87086; 97110; 97116; 97163; 97164; 97530; G0378; J2250; J2405; J2543; J2704; J3490